=== PATIENT | female | born 1990 | race Caucasian/White ===

== ENCOUNTER 2018-03-09 18:23 | Emergency (ER) | payer SELFPAY ==
[2018-03-09 18:55] VITALS: BMI 24.9
[2018-03-09 18:57] VITALS: O2SAT 100
[2018-03-09] MEDS ORDERED: Sodium Chloride 0.9% 1,000 ML IV STA ×2 (19:22→21:40)
[2018-03-09 19:55] LABS: BASO # 0.02 K/mm3 (0.0-2.0); BASO % 0.3 % (0.0-3.0); EOS % 0.3 % (1.5-5.0); GRAN # 4.77 (1.4-6.5); GRAN % 62.9 % (50.0-68.0); HEMOGLOBIN 8.2 g/dL (12.0-16.0); LYMPH # 2.1 (1.2-3.4); MEAN CELL VOLUME 61.4 fl (80.0-105.0); MEAN CORPUSCULAR HEMOGLOBIN 17.9 pg (25.0-35.0); MEAN CORPUSCULAR HGB CONC 29.1 g/dl (31.0-37.0); MONO # 0.6 (0.1-0.6); MONO % 8.5 % (1.0-6.0); RBC 4.59 10^6/uL (3.5-6.1); RED CELL DISTRIBUTION WIDTH 18.7 % (11.5-14.5); WHITE BLOOD COUNT 7.6 10^3/ul (4.5-11.0)
[2018-03-09 19:59] LABS: ALB/GLOB RATIO 1.4 (1.1-1.8); ALBUMIN 4.9 g/dL (3.0-4.8); ALT/SGPT 24 U/L (7-56); AST/SGOT 21 U/L (14-36); BLOOD UREA NITROGEN 6 mg/dL (7-21); CALCIUM 9.8 mg/dL (8.4-10.5); GFR NON-AFRICAN AMERICAN > 60
[2018-03-09 20:00] LABS: ACETAMINOPHEN < 10.0 ug/ml (10.0-20.0); SALICYLATE < 1 mg/dL (2.0-20.0)
[2018-03-09 20:09] LABS: BARBITURATES, UR NEGATIVE (NEGATIVE); BENZODIAZEPINES, UR NEGATIVE (NEGATIVE); OPIATES, UR NEGATIVE (NEGATIVE); PHENCYCLIDINE, UR NEGATIVE (NEGATIVE)
[2018-03-09 20:15] LABS: TROPONIN I < 0.01 ng/mL
[2018-03-09 21:21] LABS: PH,URINE 6.5 (4.7-8.0); URINE BILIRUBIN NEGATIVE (NEGATIVE); URINE BLOOD NEGATIVE (NEGATIVE); URINE GLUCOSE (UA) NEGATIVE (NEGATIVE); URINE LEUKOCYTE ESTERASE NEGATIVE Leu/uL (NEGATIVE); URINE PROTEIN NEGATIVE mg/dL (<30 mg/dL); URINE UROBILINOGEN 0.2 E.U./dL (<1 E.U./dL)
[2018-03-09 21:38] LABS: URINE APPEARANCE CLEAR (CLEAR); URINE COLOR YELLOW (YELLOW)
--- NOTE | 2018-03-09 21:40 | ED PDOC ---
Arrival/HPI - General Historian: Patient - History of Present Illness Narrative History of Present Illness (Text): 03/09/18 21:32 28yr old female present today with suicide attempt. pt states she got into an argument with her mother and then took 17 benadryl and 7 unknown antibiotic pills. pt c/o depression. denies fever/chills. no abdominal pain. no n/vd/c/. no urinary symptoms. no headache. no other complaints. <Cortney Urias - Last Filed: 03/10/18 00:42> <Jake Delaney - Last Filed: 03/10/18 20:34> - General Chief Complaint: Anxiety Time Seen by Provider: 03/09/18 19:22 Past Medical History - Provider Review Nursing Documentation Reviewed: Yes - Travel History Have you recently traveled outside [place] w/in the past 3 mons?: No - Infectious Disease Hx of Infectious Diseases: None - Psychiatric Hx Substance Use: No <Cortney Urias - Last Filed: 03/10/18 00:42> Family/Social History - Physician Review Nursing Documentation Reviewed: Yes Family/Social History: Unknown Family HX Smoking Status: Unknown If Ever Smoked Hx Alcohol Use: No Hx Substance Use: No <Corntey Urias - Last Filed: 03/10/18 00:42> Allergies/Home Meds <Cortney Urias - Last Filed: 03/10/18 00:42> <Jake Delaney - Last Filed: 03/10/18 20:34> Allergies/Adverse Reactions: Allergies No Known Allergies Allergy (Verified 03/09/18 18:55) Home Medications: Home Meds Medication Instructions Recorded Confirmed RX: No Known Home Med 03/09/18 03/09/18 Review of Systems - Review of Systems Constitutional: absent: Fatigue, Fevers Respiratory: absent: SOB, Cough Cardiovascular: absent: Chest Pain, Palpitations Gastrointestinal: absent: Abdominal Pain, Constipation, Diarrhea, Nausea, Vomiting Genitourinary Female: absent: Dysuria, Frequency, Hematuria Musculoskeletal: absent: Arthralgias, Back Pain, Neck Pain Skin: absent: Rash, Pruritis Neurological: absent: Headache Psychiatric: Depression, Suicidal Ideation <Cortney Uiras - Last Filed: 03/10/18 00:42> Physical Exam Vital Signs Reviewed: Yes Vital Signs Temp Pulse Resp BP Pulse Ox 03/09/18 21:24 98.2 F 106 H 16 125/69 100 03/09/18 18:56 98.2 F 109 H 17 120/90 100 Temperature: Afebrile Blood Pressure: Normal Pulse: Tachycardic Respiratory Rate: Normal Appearance: Positive for: Well-Appearing, Non-Toxic, Comfortable Pain Distress: None Mental Status: Positive for: Alert and Oriented X 3 Finger Stick Blood Glucose: 98 - Systems Exam Head: Present: Atraumatic Mouth: Present: Moist Mucous Membranes Neck: Present: Normal Range of Motion Respiratory/Chest: Present: Clear to Auscultation, Good Air Exchange. No: Respiratory Distress, Accessory Muscle Use Cardiovascular: Present: Regular Rate and Rhythm, Normal S1, S2. No: Murmurs Abdomen: No: Tenderness, Distention, Rebound, Guarding Back: Present: Normal Inspection Upper Extremity: Present: Normal ROM Lower Extremity: Present: Normal ROM Neurological: Present: GCS=15, Speech Normal Skin: Present: Warm, Dry, Normal Color. No: Rashes Psychiatric: Present: Alert, Oriented x 3 <Cortney Urias - Last Filed: 03/10/18 00:42> Vital Signs Temp Pulse Resp BP Pulse Ox 03/09/18 21:24 98.2 F 106 H 16 125/69 100 03/09/18 18:56 98.2 F 109 H 17 120/90 100 <Jake Delaney - Last Filed: 03/10/18 20:34> Medical Decision Making ED Course and Treatment: 03/09/18 21:35 Patient is nontoxic well-appearing in no distress vital signs are stable. case discussed with poison control. advised supportive management. pt placed on 1:1 for SI precautions. pt vomited once in er; zofran given IV. NS iv bolus. CBC hgb 8.2 CMP WNL Tylenol WNL Salicylate WNL Alcohol level WNL Urine drug screen wnl UA; wnl cxr: wnl ekg NSR at 98b/c no st elevations. normal axis. normal intervals. 2nd liter NS iv bolus given. pt reassessment; pt alert and oriented; no distress. pt is medically cleared for PES evaluation/psychiatric admission/transfer. Patient was seen and evaluated by PES screener: dorothy 03/10/18 01:[address] out [address] delaney [place] [facility] [place]. - Lab Interpretations Lab Results: 03/09/18 18:54 03/09/18 18:54 Lab Results 03/09/18 18:54: Alcohol, Quantitative < 10 03/09/18 18:54: Salicylates < 1 L, Acetaminophen < 10.0 L 03/09/18 18:54: Urine Opiates Screen Negative, Urine Methadone Screen Negative, Ur Barbiturates Screen Negative, Ur Phencyclidine Scrn Negative, Ur Amphetamines Screen Negative, U Benzodiazepines Scrn Negative, U Oth Cocaine Metabols Negative, U Cannabinoids Screen Negative 03/09/18 18:54: WBC 7.6, RBC 4.59, Hgb 8.2 L, Hct 28.2 L, MCV 61.4 L, MCH 17.9 L , MCHC 29.1 L, RDW 18.7 H, Plt Count 452 H, MPV 10.0, Gran % 62.9, Lymph % (Auto) 28.0, [place] % (Auto) 8.5 H, Eos % (Auto) 0.3 L, Baso % (Auto) 0.3, Gran # 4.77, Lymph # (Auto) 2.1, [place] # (Auto) 0.6, Eos # (Auto) 0.0, Baso # (Auto) 0.02 03/09/18 18:54: Sodium 141, Potassium 3.8, Chloride 106, Carbon Dioxide 23, Ani on Gap 16, BUN 6 L, Creatinine 0.6 L, Est GFR ( Amer) > 60, Est GFR (Non- Af Amer) > 60, Random Glucose 103, Calcium 9.8, Total Bilirubin 0.2, AST 21, ALT 24, Alkaline Phosphatase 65, Lactate Dehydrogenase 361, Total Creatine Kinase 52, Troponin I < 0.01, Total Protein 8.5 H, Albumin 4.9 H, Globulin 3.6, Albumin/Globulin Ratio 1.4 - RAD Interpretation Radiology Orders: 03/09/18 19:22 CHEST PORTABLE [RAD] Stat - Medication Orders Current Medication Orders: Discontinued Medications Sodium Chloride (Sodium Chloride 0.9%) 1,000 mls @ 999 mls/hr IV .Q1H1M STA Stop: 03/09/18 20:22 Last Admin: 03/09/18 19:31 Dose: 999 mls/hr eMAR Start Stop Document 03/09/18 19:31 OCS (Rec: 03/09/18 19:31 OCS [id number]) Intravenous Solution Start Date 03/09/18 Start Time 19:31 End Date 03/09/18 End time 20:31 Total Infusion Time 60 Ondansetron HCl (Zofran Inj) 4 mg IVP STAT STA Stop: 03/09/18 19:31 Last Admin: 03/09/18 19:52 Dose: 4 mg IVP Administration Document 03/09/18 19:52 OCS (Rec: 03/09/18 19:52 OCS [id number]) Charges for Administration # of IVP Administrations 1 <Cortney Urias - Last Filed: 03/10/18 00:42> ED Course and Treatment: 03/10/18 03:22 Pt seen and evaluated by [facility] [place] screen[place], who found pt uncommitable. 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 Pt stable for discharge home with outpatient psychiatric follow[place] at [facility] - Lab Interpretations Lab Results: 03/09/18 18:54 03/09/18 18:54 Lab Results 03/09/18 18:54: Alcohol, Quantitative < 10 03/09/18 18:54: Salicylates < 1 L, Acetaminophen < 10.0 L 03/09/18 18:54: Urine Opiates Screen Negative, Urine Methadone Screen Negative, Ur Barbiturates Screen Negative, Ur Phencyclidine Scrn Negative, Ur Amphetamines Screen Negative, U Benzodiazepines Scrn Negative, U Oth Cocaine Metabols Negative, U Cannabinoids Screen Negative 03/09/18 18:54: WBC 7.6, RBC 4.59, Hgb 8.2 L, Hct 28.2 L, MCV 61.4 L, MCH 17.9 L , MCHC 29.1 L, RDW 18.7 H, Plt Count 452 H, MPV 10.0, Gran % 62.9, Lymph % (Auto) 28.0, [place] % (Auto) 8.5 H, Eos % (Auto) 0.3 L, Baso % (Auto) 0.3, Gran # 4.77, Lymph # (Auto) 2.1, [place] # (Auto) 0.6, Eos # (Auto) 0.0, Baso # (Auto) 0.02 03/09/18 18:54: Sodium 141, Potassium 3.8, Chloride 106, Carbon Dioxide 23, Anion Gap 16, BUN 6 L, Creatinine 0.6 L, Est GFR ( Amer) > 60, Est GFR (Non-Af Amer) > 60, Random Glucose 103, Calcium 9.8, Total Bilirubin 0.2, AST 21, ALT 24, Alkaline Phosphatase 65, Lactate Dehydrogenase 361, Total Creatine Kinase 52, Troponin I < 0.01, Total Protein 8.5 H, Albumin 4.9 H, Globulin 3.6, Albumin/Globulin Ratio 1.4 03/09/18 18:51: Urine Color Yellow, Urine Appearance Clear, Urine pH 6.5, Ur Specific [place] <= 1.005, Urine Protein Negative, Urine Glucose (UA) Negative, Urine Ketones Negative, Urine Blood Negative, Urine Nitrate Negative, Urine Bilirubin Negative, Urine Urobilinogen 0.2, Ur Leukocyte Esterase Negative - RAD Interpretation Radiology Orders: 03/09/18 19:22 CHEST PORTABLE [RAD] Stat - Medication Orders Current Medication Orders: Sodium Chloride (Sodium Chloride 0.9%) 1,000 mls @ 999 mls/hr IV .Q1H1M STA Stop: 03/09/18 22:40 Last Admin: 03/09/18 21:53 Dose: 999 mls/hr eMAR Start Stop Document 03/09/18 21:53 OCS (Rec: 03/09/18 21:54 OCS [id number]) Intravenous Solution Start Date 03/09/18 Start Time 21:53 End Date 03/09/18 End time 22:54 Total Infusion Time 61 Discontinued Medications Sodium Chloride (Sodium Chloride 0.9%) 1,000 mls @ 999 mls/hr IV .Q1H1M STA Stop: 03/09/18 20:22 Last Admin: 03/09/18 19:31 Dose: 999 mls/hr eMAR Start Stop Document 03/09/18 19:31 OCS (Rec: 03/09/18 19:31 OCS [id number]) Intravenous Solution Start Date 03/09/18 Start Time 19:31 End Date 03/09/18 End time 20:31 Total Infusion Time 60 Ondansetron HCl (Zofran Inj) 4 mg IVP STAT STA Stop: 03/09/18 19:31 Last Admin: 03/09/18 19:52 Dose: 4 mg IVP Administration Document 03/09/18 19:52 OCS (Rec: 03/09/18 19:52 OCS [id number]) Charges for Administration # of IVP Administrations 1 <JoyceJake - Last Filed: 03/10/18 20:34> - PA / SENIOR AUDITOR / Resident Statement / has reviewed & agrees with the documentation as recorded. / has examined the patient and agrees with the treatment plan. <Jake Delaney - Last Filed: 03/10/18 20:34> Disposition/Present on Arrival - Present on Arrival Any Indicators Present on Arrival: No History of DVT/PE: No History of Uncontrolled Diabetes: No Urinary Catheter: No History of Decub. Ulcer: No History Surgical Site Infection Following: None - Disposition Have Diagnosis and Disposition been Completed?: Yes <Cortney Urias - Last Filed: 03/10/18 00:42> - Present on Arrival Any Indicators Present on Arrival: No - Disposition Have Diagnosis and Disposition been Completed?: Yes Disposition Time: 03:23 Patient Plan: Discharge <JoyceJake - Last Filed: 03/10/18 20:34> - Disposition Diagnosis: Depression Disposition: HOME/ ROUTINE Condition: GOOD Additional Instructions: Follow up at [facility] outpatient mental health as instructed Referrals: PCP,NO [Primary Care Provider] - Follow up with primary Forms: [facility] ([place]ian)
[2018-03-09 22:38] VITALS: RESP 18
[2018-03-10 03:44] VITALS: BP 133/75; PULSE 86; TEMP 98.9
--- NOTE | 2018-03-10 09:13 | RAD ---
Date of service: 03/09/2018 HISTORY: overdose COMPARISON: No prior. FINDINGS: LUNGS: No active pulmonary disease. PLEURA: No significant pleural effusion identified, no pneumothorax apparent. CARDIOVASCULAR: Normal. OSSEOUS STRUCTURES: No significant abnormalities. VISUALIZED UPPER ABDOMEN: Normal. OTHER FINDINGS: None. IMPRESSION: No active disease.
--- NOTE | 2018-03-10 16:36 | CARD ---
APPROVED REPORT Date of service: 03/09/2018 EKG Measurement Heart [id number] <Conclusion> Normal sinus rhythm Normal Electrocardiogram
== END 2018-03-10 04:00 | disposition home or self-care (01) ==
LOC: ED 18:23
DX: F32.9 Major depressive disorder, single episode, unspecified (principal)
CPT/HCPCS: 71045; 80053; 81003; 82550; 82948; 83615; 84484; 85025; 87086; 90791; 93005; 96361; 96374; 99285; G0480; J2405; J7030